=== PATIENT | male | born 1970 | race Caucasian/White ===

== ENCOUNTER 2018-01-08 14:01 | Emergency (ER) | payer MEDICAID ==
[~2018-01-08] VITALS: Ht 177.8 cm; Wt 87.1 kg
[2018-01-08 14:07] VITALS: BP 123/69; Ht 177.8 cm; Wt 87.1 kg
== END 2018-01-08 15:01 | disposition home or self-care (01) ==
LOC: ED 14:01
DX: G44.209 Tension-type headache, unspecified, not intractable (principal); Z90.89 Acquired absence of other organs
CPT/HCPCS: J1885

== ENCOUNTER 2018-07-29 08:48 | Emergency (ER) | payer MEDICAID ==
[~2018-07-29] VITALS: Ht 177.8 cm; Wt 88.9 kg
[2018-07-29 08:59] VITALS: Ht 177.8 cm; Wt 88.9 kg
[2018-07-29 12:03] VITALS: BP 112/84
== END 2018-07-29 12:03 | disposition home or self-care (01) ==
LOC: ED 08:48
DX: B34.9 Viral infection, unspecified (principal); J98.01 Acute bronchospasm; F17.210 Nicotine dependence, cigarettes, uncomplicated; Z71.6 Tobacco abuse counseling; Z90.89 Acquired absence of other organs; Z98.890 Other specified postprocedural states
CPT/HCPCS: 87804; 99406; J7613; J7644; Q0092